=== PATIENT | male | born 1980 | race Caucasian/White ===

== ENCOUNTER → 2016-08-02 | Outpatient (CLI) | payer OTHER ==
--- NOTE | 2016-08-02 11:37 | Diagnostic Imaging Report ---
PROCEDURE: US Thyroid. TECHNIQUE: Multiple real-time grayscale images were obtained of the thyroid in various projections. INDICATION: Right neck pain. FINDINGS: The right thyroid lobe is 5.3 x 1.5 x 1.9 CM. The left lobe is 5.6 x 1.4 x 1.7 CM. A 3 mm cyst is seen in the right thyroid lobe inferiorly. No solid nodule seen. IMPRESSION: Slightly enlarged thyroid gland. No solid nodule. Dictated by: Dictated on workstation # [id number]
== END ==
LOC: RAD 10:26
PROVIDERS: ATTEND Nurse Practitioner
DX: E04.9 Nontoxic goiter, unspecified (principal)
CPT/HCPCS: 76536

== ENCOUNTER 2018-02-01 08:29 | Emergency (ER) | payer OTHER ==
[~2018-02-01] VITALS: Ht 193 cm; Wt 108.9 kg
[2018-02-01] MEDS ORDERED: METHYLPREDNISOLONE 4 MG DOSEPK (08:49)
[2018-02-01] MEDS ORDERED: AMOXICILLIN 500 MG CAPSULE (08:49)
[2018-02-01] MEDS ORDERED: CLOTRIMAZOLE-BETAMETHASONE CRM (08:49)
[2018-02-01] MEDS ORDERED: hydrOXYzine (VISTARIL) 25 MG CAP PO ONE (09:15)
--- NOTE | 2018-02-01 09:36 | ED Integumentary General ---
General Chief Complaint: Skin/Wound Problems Stated Complaint: RASH Nursing Triage Note: pt presents ot er with complaint of rash. states rash started three days ago. states he also had sore throat and pus pockets on throat whenever rash began. pt was prescribed amoxicillin and tapered prednisone and has been on it for three days. states rash is not improving and itching Source: patient Exam Limitations: no limitations History of Present Illness Date Seen by Provider: Feb 01, 2018 Time Seen by Provider: 09:00 Initial Comments Here with report of rash to his body that is quite itchy. Started 3 days ago. At the same time he had sore throat and not feeling well. Concerned about strep throat and was started on steroids and amoxicillin. Rash started before amoxicillin. He has not taken anything for the itching. He thought that prednisone would be helpful for that. Denies nausea or vomiting. Denies breathing problems. Timing/Duration: constant, other (3-4 days ago) Severity: moderate Location: torso, extremities Possible Cause: no cause identified Modifying Factors: improves with prednisone Associated Symptoms: No blisters, No edema, No fever; nasal congestion, rash, sore throat Allergies and Home Medications Allergies Coded Allergies: No Known Drug Allergies (Unverified , 02/01/18) Patient Home Medication List Home Medication List Reviewed: Yes Review of Systems Review of Systems Constitutional: see HPI; No chills, No fever EENTM: nose congestion, throat pain, throat swelling Respiratory: cough; No short of breath Cardiovascular: no symptoms reported Gastrointestinal: no symptoms reported Genitourinary: no symptoms reported Musculoskeletal: no symptoms reported Skin: see HPI, rash Past Fvjaxyc-Oggnsr-Biqvyl Hx Past Med/Social Hx: Reviewed Nursing Past Med/Soc Hx Patient Social History Alcohol Use: Denies Use Recreational Drug Use: No Smoking Status: Never a Smoker Recent Foreign Travel: No Contact w/Someone Who Travel: No Recent Infectious Disease Expo: No Recent Hopitalizations: No Immunizations Up To Date Tetanus Booster (TDap): Unknown PED Vaccines UTD: Yes Seasonal Allergies Seasonal Allergies: No Past Medical History Surgeries: Yes Appendectomy Respiratory: No Cardiac: No Neurological: No Genitourinary: No Gastrointestinal: No Musculoskeletal: No Endocrine: No HEENT: No Cancer: No Psychosocial: No Blood Disorders: No Family Medical History Reviewed Nursing Family Hx Physical Exam Vital Signs Vital Signs - First Documented 02/01/18 08:38 Temp 98.0 Pulse 67 Resp 20 B/P (MAP) 144/102 (116) Pulse Ox 99 O2 Delivery Room Air Capillary Refill : Less Than 3 Seconds General Appearance: WD/WN, no apparent distress HEENT: PERRL/EOMI, pharyngeal erythema, tonsillar exudate Neck: full range of motion, supple, lymphadenopathy (R), lymphadenopathy (L) Cardiovascular: regular rate, rhythm, no murmur Respiratory: lungs clear, normal breath sounds Gastrointestinal: non tender, soft Back: normal inspection, no CVA tenderness, no vertebral tenderness Skin: rash Skin Problem Location: upper extremities, torso, lower extremities Skin Problem Character: macules, patchy, rash Progress/Results/Core Measures Results/Orders Lab Results Laboratory Tests Test 02/01/18 09:17 Range/Units Monoscreen NEGATIVE NEGATIVE Group A Streptococcus Screen NEGATIVE NEGATIVE My Orders Orders - KENROY WALTERS MD Hydroxyzine Oral (Vistaril Capsule) (02/01/18 09:15) Monotest (02/01/18 09:10) Rapid Strep A Screen (02/01/18 09:10) Medications Given in ED Current Medications Medications Dose Ordered Sig/Harman Route Start Time Stop Time Status Last Admin Dose Admin Hydroxyzine Pamoate 25 mg ONCE ONCE PO 02/01/18 09:15 02/01/18 09:16 DC 02/01/18 09:17 25 MG Vital Signs/I&O 02/01/18 08:38 Temp 98.0 Pulse 67 Resp 20 B/P (MAP) 144/102 (116) Pulse Ox 99 O2 Delivery Room Air Blood Pressure Mean: 116 Progress Progress Note : Progress Note Seen and evaluated. Monospot and rapid strep screen ordered. Hydroxyzine 25 mg by mouth given. Monitor patient. 0953: Labs reviewed. Discharged home with return precautions. Patient verbalize understanding instructions and agreement with plan. Departure Impression Primary Impression: Rash Additional Impression: Pharyngitis, acute Qualified Codes: J02.9 - Acute pharyngitis, unspecified Disposition: HOME, SELF-CARE Condition: Improved Departure-Patient Inst. Decision time for Depature: 09:55 Referrals: NO,LOCAL PHYSICIAN (PCP/Family) Primary Care Physician Patient Instructions: Skin Rash (DC), Sore Throat, Adult (DC) Add. Discharge Instructions: All discharge instructions reviewed with patient and/or family. Voiced understanding. Take medications as directed. Follow-up with your Dr. in a few days for recheck. Drink plenty of fluids. Return for worse pain, fever, vomiting, weakness, breathing problems or other concerns as needed. Complete amoxicillin prescription and steroid prescription as previously prescribed. Scripts Hydroxyzine HCl (Hydroxyzine HCl) 25 Mg Tablet 25 MG PO Q6H PRN for ITCHING, #20 TAB 0 Refills Prov: KENROY WALTERS MD 02/01/18 KENROY WALTERS MD Feb 01, 2018 09:36
[2018-02-01] MEDS ORDERED: HYDR-700 PO (09:57)
[2018-02-01 10:09] VITALS: BP 136/88
== END 2018-02-01 10:09 | disposition home or self-care (01) ==
LOC: EDUNIT# 08:29 → ER 08:31
DX: R21 Rash and other nonspecific skin eruption (principal); J02.9 Acute pharyngitis, unspecified; Z90.49 Acquired absence of other specified parts of digestive tract
CPT/HCPCS: 36415; 86308; 87430

== ENCOUNTER → 2022-08-05 | Outpatient (CLI) | payer OTHER ==
[~2022-08-05] MED LIST: AMOXICILLIN 500 MG CAPSULE; CLOTRIMAZOLE-BETAMETHASONE CRM; HYDR-700 PO; METHYLPREDNISOLONE 4 MG DOSEPK
--- NOTE | 2022-08-05 09:46 | Diagnostic Imaging Report ---
PROCEDURE: US Scrotum. TECHNIQUE: Multiple real-time grayscale images were obtained over the scrotum in various projections bilaterally. INDICATION: Scrotal asymmetry. Patient has history of vasectomy one week ago. Right testicle measures 4.5 x 2.4 x 3.0 cm and the left testicle measures 4.7 x 2.3 x 2.7 cm. Both testes demonstrate homogeneous echotexture. No testicular mass is identified. There is normal blood flow to both testes. Epididymides are unremarkable bilaterally. No hydrocele or varicocele is identified. IMPRESSION: Unremarkable scrotal ultrasound. Dictated by: Dictated on workstation # [id number]
== END ==
LOC: RAD 08:43
PROVIDERS: ATTEND Surgery
DX: N50.9 Disorder of male genital organs, unspecified (principal)
CPT/HCPCS: 76870